=== PATIENT | female | born 1990 | race Caucasian/White ===

== ENCOUNTER 2024-11-05 07:44 | Outpatient (CLI) | payer BC, SELFPAY ==
[2024-11-06 22:47] LABS: Estradiol Premenol Female 36 pg/mL
[2024-11-07 03:18] LABS: Follicle Stimulating Hormone 6.2 IU/L; Luteinizing Hormone, Serum 11.3 IU/L
== END 2024-11-05 07:45 | disposition home or self-care (01) ==
LOC: LAB 07:54
PROVIDERS: Visit Provider Obstetrics & Gynecology
DX: Z31.9 Encounter for procreative management, unspecified (principal)
CPT/HCPCS: 36415; 82670; 83001; 83002; 84146